=== PATIENT | female | born 1995 | race Caucasian/White ===

== ENCOUNTER 2022-01-09 17:54 | Inpatient (IN) | payer OTHER ==
[2022-01-09 18:41] VITALS: BMI 44.9
[2022-01-09] MEDS ORDERED: Lactated Ringer's 1,000 ML IV SCH (19:15)
[2022-01-09 19:43] LABS: #Eosinphils 0.2 10x3/uL (0.0-0.5); #Monocytes 0.7 10x3/uL (0.0-1.1); #Neutrophils 8.7 10x3/uL (1.5-8.4); %Basophils 0.2 % (0.0-2.0); %Eosinophils 1.3 % (0.0-6.0); %Neutrophils 72.1 % (40.0-75.0); Hemoglobin 12.3 g/dL (12.0-15.5); Mean Corpuscular Hemoglobin 30.9 pg (27.0-33.0); Mean Corpuscular Volume 88.2 fl (81.6-98.3); Platelet Count 247 10x3/uL (150-450); RBC Distribution Width 12.5 % (11.5-14.5); Red Blood Cell (RBC) Count 3.98 10x6/uL (3.90-5.03); White Blood Cell (WBC) Count 12.1 10x3/uL (3.5-10.5)
[2022-01-09 19:48] LABS: Bilirubin 1+ (Negative); Blood, Urine 150 (Negative); Glucose, Urine (Dipstick) Normal (Negative); Ketone, Urine 5 mg/dL (Negative); Leukocyte 100 (Negative); Nitrite Negative (Negative); Protein, Urine (Dipstick) 30 mg/dl (Neg-Trace)
[2022-01-09 19:50] LABS: Urine Culture Reflex No No
[2022-01-09 20:05] LABS: Bacteria/HPF 2+ HPF (None Seen); Squamous Epithelial 21-50 HPF (0-3)
[2022-01-09 20:06] LABS: Other Microscopic Description SEE COMMENTS
[2022-01-09 20:06] LABS: ALT (SGPT) 137 U/L (8-55); AST (SGOT) 50 U/L (5-34); Albumin 2.9 g/dL (3.5-5.0); Alkaline Phosphatase 121 U/L (40-110); Anion Gap 14 mmol/L (10-20); BUN (Urea Nitrogen) 9 mg/dL (7.0-18.7); Bilirubin, Total 0.7 mg/dL (0.2-1.2); Calc. Creatinine Clearance 260 mL/min (70-130); Calcium 9.1 mg/dL (7.8-10.44); Carbon Dioxide 19 mmol/L (22-29); Chloride 108 mmol/L (98-107); Estimated GFR 126; Globulin 3.4 g/dL (2.4-3.5); Glucose 110 mg/dL (70-105); Potassium 3.9 mmol/L (3.5-5.1); Protein, Total 6.3 g/dL (6.0-8.3); Sodium 137 mmol/L (136-145)
[2022-01-09 22:04] LABS: Bilirubin 1+ (Negative); Blood, Urine 10 (Negative); Clarity Clear (Clear); Glucose, Urine (Dipstick) Normal (Negative); Ketone, Urine 5 mg/dL (Negative); Leukocyte 25 (Negative); Nitrite Negative (Negative); Protein, Urine (Dipstick) 30 mg/dl (Neg-Trace); Specific Gravity, Urine 1.015 (1.005-1.030); pH, Urine 6.5 (5.0-9.0)
[2022-01-09 22:12] LABS: Bacteria/HPF Rare-Few HPF (None Seen); Mucous/LPF 1+ LPF (<2+); Squamous Epithelial 0-3 HPF (0-3); WBC/HPF 0-3 HPF (0-3)
[2022-01-09] MEDS ORDERED: cefTRIAXone\\ROCEPHIN 1 GM in Sodium Chloride 0.9% 100 ML IVPB SCH (23:00)
[2022-01-10 06:02] LABS: ALT (SGPT) 128 U/L (8-55); AST (SGOT) 49 U/L (5-34); Albumin 2.6 g/dL (3.5-5.0); Alkaline Phosphatase 118 U/L (40-110); Anion Gap 13 mmol/L (10-20); BUN (Urea Nitrogen) 9 mg/dL (7.0-18.7); Bilirubin, Total 0.5 mg/dL (0.2-1.2); Calc. Creatinine Clearance 252 mL/min (70-130); Calcium 8.8 mg/dL (7.8-10.44); Carbon Dioxide 20 mmol/L (22-29); Chloride 108 mmol/L (98-107); Estimated GFR 125; Globulin 3.1 g/dL (2.4-3.5); Glucose 120 mg/dL (70-105); Potassium 3.8 mmol/L (3.5-5.1); Protein, Total 5.7 g/dL (6.0-8.3); Sodium 137 mmol/L (136-145)
[2022-01-10] MEDS ORDERED: Ondansetron PF 4 MG/2 ML Vial IVP PRN (06:03)
[2022-01-10] MEDS ORDERED: hydrALAZINE 20 MG/ML VIAL SLOW IVP PRN ×2 (06:03→10:21)
[2022-01-10] MEDS ORDERED: Promethazine HCl 25 MG/ML VIAL IM PRN (06:03)
[2022-01-10] MEDS ORDERED: Lidocaine 1% (PF) 30 ML VIAL SC PRN (06:05)
[2022-01-10] MEDS ORDERED: Betamet Acet/Betamet Na Ph 30 MG/5 ML VIAL ONE (06:09)
[2022-01-10] MEDS ORDERED: Penicillin G Potassium 5 MILL.UNITS VIAL ONE (06:09)
[2022-01-10] MEDS ORDERED: Penicillin G Potassium 5 MILL.UNITS in Sodium Chloride 0.9% 100 ML IVPB SCH (06:15)
[2022-01-10] MEDS ORDERED: NS w/ Oxytocin 30 units 500 ML IV SCH ×2 (06:15→10:30)
[2022-01-10] MEDS ORDERED: NIFEdipine 10 MG CAP PO SCH (07:30)
[2022-01-10 08:02] LABS: HBSAg Index 0.19 S/CO (0-0.99); Hep B Surf Ag NonReactive S/CO (NonReactive)
[2022-01-10 08:04] LABS: Hemoglobin 12.5 g/dL (12.0-15.5); Mean Corpuscular HGB CONC 35.3 g/dL (32.0-36.0); Mean Corpuscular Hemoglobin 31.2 pg (27.0-33.0); Mean Corpuscular Volume 88.3 fl (81.6-98.3); Mean Platelet Volume 12.3 fl (7.4-10.4); Platelet Count 230 10x3/uL (150-450); RBC Distribution Width 12.6 % (11.5-14.5); Red Blood Cell (RBC) Count 4.01 10x6/uL (3.90-5.03); White Blood Cell (WBC) Count 13.9 10x3/uL (3.5-10.5)
[2022-01-10 08:41] LABS: Syphilis Antibody Nonreactive (Nonreactive); Syphilis Antibody Index 0.03 S/CO (<1.00 Non-Reactive)
[2022-01-10 08:42] LABS: Hep B Surf Ag Non-Reactive S/CO (NonReactive)
[2022-01-10] MEDS ORDERED: Penicillin G 2.5 MILL.units 50 ML IVPB SCH (09:00)
[2022-01-10] MEDS ORDERED: Pen G 2.5 MILL.UNITS/50 ML BAG IVPB SCH (09:00)
[2022-01-10] MEDS ORDERED: Butorphanol Tartrate 1 MG/ML VIAL ONE (09:36)
[2022-01-10] MEDS ORDERED: Bisacodyl 10 MG SUPP PR PRN (10:21)
[2022-01-10] MEDS ORDERED: HYDROcodone/Acetaminophen 5/325 mg Tablet PO PRN ×2 (10:21)
[2022-01-10] MEDS ORDERED: Preparation H Ointment 28 GM TUBE PR PRN (10:21)
[2022-01-10] MEDS ORDERED: Misoprostol 200 MCG TAB VAG PRN (10:21)
[2022-01-10] MEDS ORDERED: Milk Of Magnesia 30 ML UDCUP PO PRN (10:21)
[2022-01-10] MEDS ORDERED: Benzocaine-Menthol 82.5 ML CAN TOP PRN (10:21)
[2022-01-10] MEDS ORDERED: Methylergonovine 0.2 MG/ML VIAL IM PRN (10:21)
[2022-01-10 11:41] LABS: SARS-CoV-2 NAA Rapid Test Not Detected (NotDetected)
[2022-01-10 13:38] LABS: HBCM Index 0.08 S/CO (0-0.79); HBSAB Concentration Less than 8.00 mIU/mL; Hep A IgM AB Non-Reactive (NonReactive); Hep A IgM S/CO 0.13 S/CO (0-0.79); Hep B Surf AB Non-Reactive (NonReactive); Hep C IgG Ab Non-Reactive (NonReactive); Hep C Index 0.08 S/CO (0-0.79); Hepatitis B Core IgM Abs Non-Reactive (NonReactive)
[2022-01-10] MEDS: Ferrous Sulfate 325 MG TAB PO SCH (18:33)
[2022-01-10] MEDS: Ibuprofen 800 MG TAB PO SCH ×2 (18:33→21:12)
[2022-01-10] MEDS: Docusate 100 MG CAP PO SCH (21:12)
[2022-01-11] MEDS: Ibuprofen 800 MG TAB PO SCH ×3 (05:43→22:25)
[2022-01-11] MEDS: Ferrous Sulfate 325 MG TAB PO SCH ×2 (08:02→17:09)
[2022-01-11] MEDS: Docusate 100 MG CAP PO SCH ×2 (08:04→22:02)
[2022-01-11] MEDS ORDERED: Boostrix 0.5 ML (Tdap) VIAL (>/=7 yrs of age) IM ONE (10:21)
[2022-01-12] MEDS: Ibuprofen 800 MG TAB PO SCH (05:31)
[2022-01-12] MEDS: Ferrous Sulfate 325 MG TAB PO SCH (07:39)
[2022-01-12 07:41] VITALS: BP 121/66; TEMP 98
[2022-01-13] MEDS ORDERED: Measles/Mumps/Rubella 10 MCG/0.5 ML VIAL SC ONE (10:21)
[2022-01-13] MEDS ORDERED: Varicella virus, LIVE 0.5 ML VIAL SC ONE (10:21)
== END 2022-01-12 13:40 | disposition home or self-care (01) | DRG 806 ==
LOC: CSHLD/OP 17:54 → CSHLD 01-10 06:15 → CSHPP 01-10 12:45
PROVIDERS: ADMIT Obstetrics & Gynecology; ATTEND Obstetrics & Gynecology
PROC: 10E0XZZ Delivery of Products of Conception, External Approach (ICD-10-PCS; principal; 2022-01-10)
PROC: 0UQMXZZ Repair Vulva, External Approach (ICD-10-PCS; 2022-01-10)
PROC: 0HQ9XZZ Repair Perineum Skin, External Approach (ICD-10-PCS; 2022-01-10)
DX: O60.14X0 Preterm labor third trimester with preterm delivery third trimester, not applicable or unspecified (principal); N39.0 Urinary tract infection, site not specified; Z37.0 Single live birth; O23.43 Unspecified infection of urinary tract in pregnancy, third trimester; O70.0 First degree perineal laceration during delivery; Z3A.34 34 weeks gestation of pregnancy
CPT/HCPCS: 36415; 51701; 76815; 80053; 80074; 81001; 85025; 85027; 86706; 86780; 86850; 86900; 86901; 87086; 87340; 99285; J0595; J0696; J0702; J2405; J2540; J3490; U0002

== ENCOUNTER 2022-03-21 12:57 | Emergency (ER) | payer OTHER | END 2022-03-21 13:31 | disposition home or self-care (01) | LOC: CSHERS 12:57 | DX: K04.7 Periapical abscess without sinus (principal); F17.290 Nicotine dependence, other tobacco product, uncomplicated | CPT/HCPCS: 99282 ==

== ENCOUNTER 2023-06-15 14:41 | Emergency (ER) | payer OTHER, SELFPAY ==
[2023-06-15 16:35] LABS: #Eosinphils 0.1 10x3/uL (0.0-0.5); #Monocytes 0.6 10x3/uL (0.0-1.1); #Neutrophils 4.5 10x3/uL (1.5-8.4); %Basophils 0.4 % (0.0-2.0); %Eosinophils 1.3 % (0.0-6.0); %Lymphocytes 34.5 % (18.0-47.0); %Monocytes 7.4 % (0.0-10.0); %Neutrophils 56.3 % (40.0-75.0); Hematocrit 44.7 % (34.9-44.5); Hemoglobin 15.8 g/dL (12.0-15.5); Mean Corpuscular HGB CONC 35.3 g/dL (32.0-36.0); Mean Corpuscular Hemoglobin 30.9 pg (27.0-33.0); Mean Corpuscular Volume 87.5 fl (81.6-98.3); Platelet Count 334 10x3/uL (150-450); Red Blood Cell (RBC) Count 5.11 10x6/uL (3.90-5.03)
[2023-06-15 16:49] LABS: BHCG - Serum Negative (NEGATIVE); Pregs Control Background? CLEAR/WHITE (CLR/WHITE); Pregs Control Bar Appear? YES (CONTROL BAR)
[2023-06-15 16:56] LABS: ALT (SGPT) 19 U/L (8-55); AST (SGOT) 20 U/L (5-34); Albumin 4.4 g/dL (3.5-5.0); Alkaline Phosphatase 73 U/L (40-110); Anion Gap 14 mmol/L (10-20); BUN (Urea Nitrogen) 10 mg/dL (7.0-18.7); Bilirubin, Total 0.7 mg/dL (0.2-1.2); Calc. Creatinine Clearance 0 mL/min (70-130); Calcium 9.2 mg/dL (7.8-10.44); Carbon Dioxide 22 mmol/L (22-29); Chloride 106 mmol/L (98-107); Estimated GFR 98; Globulin 3.3 g/dL (2.4-3.5); Glucose 73 mg/dL (70-105); Lipase 16 U/L (8-78); Potassium 3.5 mmol/L (3.5-5.1); Protein, Total 7.7 g/dL (6.0-8.3); Sodium 138 mmol/L (136-145)
[2023-06-15] MEDS ORDERED: Ondansetron PF 4 MG/2 ML Vial ONE (17:28)
[2023-06-15 18:17] LABS: Bilirubin Neg (Negative); Blood, Urine 150 (Negative); Clarity Clear (Clear); Glucose, Urine (Dipstick) Normal (Negative); Ketone, Urine 15 mg/dL (Negative); Leukocyte 100 (Negative); Nitrite Negative (Negative); Protein, Urine (Dipstick) 15 mg/dl (Neg-Trace)
[2023-06-15 18:44] LABS: Bacteria/HPF 4+ HPF (None Seen); CAUTI Indications for Culture Dysuria,urgency,freq; Mucous/LPF 2+ LPF (<2+); RBC/HPF 0-3 HPF (0-3)
[2023-06-15 18:45] LABS: Urine Culture Reflex No No
== END 2023-06-15 19:00 | disposition home or self-care (01) ==
LOC: CSHERS 14:41
DX: R10.9 Unspecified abdominal pain (principal); R11.10 Vomiting, unspecified
CPT/HCPCS: 74177; 80053; 81001; 83690; 84703; 85025; 96361; 96374; J2405

== ENCOUNTER 2023-09-17 13:56 | Emergency (ER) | payer OTHER | END 2023-09-17 14:36 | disposition home or self-care (01) | LOC: CSHERS 13:56 | DX: B35.1 Tinea unguium (principal); F17.290 Nicotine dependence, other tobacco product, uncomplicated | CPT/HCPCS: 99283 ==

== ENCOUNTER 2023-11-21 21:21 | Emergency (ER) | payer OTHER ==
[2023-11-21 22:45] LABS: Influenza A by NAA Not Detected (NotDetected); Influenza B by NAA Not Detected (NotDetected); SARS-CoV-2 NAA Rapid Test DETECTED (NotDetected)
[2023-11-22] MEDS ORDERED: Dexamethasone 10 MG/ML VIAL ONE (00:11)
== END 2023-11-22 00:20 | disposition home or self-care (01) ==
LOC: CSHERS 21:21
DX: U07.1 COVID-19 (principal)
CPT/HCPCS: 99283; J1100

== ENCOUNTER 2024-12-02 15:27 | Emergency (ER) | payer OTHER ==
[2024-12-02 16:13] LABS: Glucose, Urine (Dipstick) Normal (Negative); Leukocyte 100 (Negative); Protein, Urine (Dipstick) 30 mg/dl (Neg-Trace); Specific Gravity, Urine 1.020 (1.005-1.030)
[2024-12-02 16:16] LABS: #Basophils 0.05 10x3/uL (0.0-0.2); #Eosinophils 0.06 10x3/uL (0.0-0.5); #Monocytes 0.54 10x3/uL (0.0-1.1); #Neutrophils 9.94 10x3/uL (1.5-8.4); %Basophils 0.4 % (0.0-2.0); %Eosinophils 0.5 % (0.0-6.0); %Lymphocytes 18.4 % (18.0-47.0); %Monocytes 4.1 % (0.0-10.0); %Neutrophils 76.3 % (40.0-75.0); Hematocrit 41.5 % (34.9-44.5); Hemoglobin 14.2 g/dL (12.0-15.5); Mean Corpuscular Hemoglobin 30.2 pg (27.0-33.0); Mean Corpuscular Volume 88.3 fL (81.6-98.3); Platelet Count 342 10x3/uL (150-450); Red Blood Cell (RBC) Count 4.70 10x6/uL (3.90-5.03); White Blood Cell (WBC) Count 13.03 10x3/uL (3.5-10.5)
[2024-12-02 16:32] LABS: ALT (SGPT) 14 U/L (Less than 34); AST (SGOT) 20 U/L (11-34); Albumin 4.8 g/dL (3.1-4.5); Alkaline Phosphatase 69 U/L (40-110); Anion Gap 11 mmol/L (10-20); BUN (Urea Nitrogen) 13 mg/dL (7.0-18.7); Bilirubin, Total 0.6 mg/dL (0.3-1.2); Calc. Creatinine Clearance 0 mL/min (70-130); Calcium 9.7 mg/dL (7.8-10.44); Carbon Dioxide 27 mmol/L (22-29); Chloride 105 mmol/L (98-107); Globulin 3.7 g/dL (2.4-3.5); Glucose 75 mg/dL (70-105); Lipase 23 U/L (8-78); Potassium 4.0 mmol/L (3.5-5.1); Sodium 139 mmol/L (136-145)
[2024-12-02 16:51] LABS: CAUTI Indications for Culture Pelvic or flank pain; RBC/HPF None Seen HPF (0-3); WBC/HPF 0-3 HPF (0-3)
[2024-12-02 16:52] LABS: Bacteria/HPF None Seen HPF (None Seen); Mucous/LPF 4+ LPF (<2+); Urine Culture Reflex No No
== END 2024-12-02 17:18 | disposition home or self-care (01) ==
LOC: CSHERS 15:27
DX: N39.0 Urinary tract infection, site not specified (principal); R11.2 Nausea with vomiting, unspecified
CPT/HCPCS: 36415; 80053; 81001; 83690; 84702; 85025; 99284